=== PATIENT | male | born 1960 | race African-American/Black ===

== ENCOUNTER 2023-10-20 12:25 | Inpatient (IN) | payer MEDICARE, MEDICAID ==
[~2023-10-20] VITALS: Ht 170.2 cm; Wt 73.0 kg
[2023-10-20 13:47] LABS: Basophils # (auto) 0.1 10 ^3/uL (0-0.2); Eosinophils # (auto) 0.1 10 ^3/uL (0-0.8); Hemoglobin 11.8 g/dL (13.5-17.5); Lymphocytes # (auto) 0.2 10 ^3/uL (0.4-5.4); Mean Corpuscular Volume 102.1 fL (80.0-100.0); Monocytes # (auto) 0.3 10 ^3/uL (0-1.3); Nucleated Red Blood Cells % 0.2 %
[2023-10-20 13:50] LABS: Basophils % (auto) 1.2 % (0.0-2.0); Eosinophils % (auto) 1.3 % (0.0-7.0); Hematocrit 36.3 % (41.0-53.0); Lymphocytes % (auto) 2.2 % (10.0-50.0); Mean Corpuscular Hemoglobin 33.3 pg (28.0-32.0); Mean Corpuscular Hgb Conc. 32.7 g/dL (32.0-36.0); Monocytes % (auto) 3.3 % (0.0-12.0); Neutrophils # (auto) 7.9 10 ^3/uL (1.6-8.6); Red Blood Cells 3.55 10^6/uL (4.5-5.90); Red Cell Distribution Width 17.2 % (11.8-14.3); White Blood Cell 8.6 10^3/uL (4.4-10.8)
[2023-10-20 14:05] LABS: Alanine Aminotransferase 20 U/L (7-40); Alkaline Phosphatase 115 U/L (46-116)
[2023-10-20 14:06] LABS: Albumin 3.6 g/dL (3.2-4.8); Anion Gap 9 (5-15); Aspartate Aminotransferase 28 U/L (13-40); BUN/Creatinine Ratio 12.3 (10.0-20.0); Bilirubin, Total 1.2 mg/dL (0.2-1.0); Blood Urea Nitrogen 72 mg/dL (9-23); Carbon Dioxide 28 mmol/L (20-30); Chloride 101 mmol/L (98-107); Glucose 91 mg/dL (74-106); Lipase 41 U/L (12-53); Sodium 138 mmol/L (136-145); Total Protein 6.3 g/dL (5.7-8.2)
[2023-10-20] MEDS ORDERED: NITROGLYCERIN 0.4 MG SL TAB SL PRN (17:45)
[2023-10-20] MEDS ORDERED: ONDANSETRON HCL 4 MG/2 ML VIAL IV PRN (17:45)
[2023-10-20] MEDS ORDERED: DOCUSATE SOD 100 MG CAP PO PRN (17:45)
[2023-10-20] MEDS ORDERED: MORPHINE SULFATE INJ 2 MG/ml SYRG IV PRN (17:45)
[2023-10-20] MEDS ORDERED: LORA-1121 PO (18:52)
[2023-10-20] MEDS ORDERED: HYDR-4298 PO (18:52)
[2023-10-20] MEDS ORDERED: ISOS20TA5 PO (18:52)
[2023-10-20] MEDS ORDERED: LOSA-534 PO (18:52)
[2023-10-20] MEDS ORDERED: METO-289 PO (18:52)
[2023-10-20] MEDS ORDERED: TOPI25TA84 PO (18:52)
[2023-10-20] MEDS ORDERED: AMPICILLIN & SULBACTAM SODIUM 3 GM in SODIUM CHL 0.9% 100 ML IV SCH (19:15)
[2023-10-20] MEDS ORDERED: cefTRIAXone 1GM/50ML D5W 50 ML IV SCH (22:30)
[2023-10-21] VITALS (7 sets, daily range): BP systolic 117–161; BP diastolic 58–81; PULSE 65–91; RESP 16–19; TEMP 97.1–98.7; O2SAT 97–99
[2023-10-21] MEDS: metroNIDAZOLE 500MG/100ML 100 ML IV SCH (00:08)
[2023-10-21] MEDS: FUROSEMIDE 40 MG/4 ML VIAL IV ONE (00:10)
[2023-10-21] MEDS: hydrALAZINE HCL 25 MG TAB PO SCH (00:12)
[2023-10-21] MEDS: TOPIRAMATE 25 MG TAB PO SCH (00:12)
[2023-10-21] MEDS: ISOSORBIDE DINITRATE 10 MG TAB PO SCH (00:13)
[2023-10-21] MEDS: LOSARTAN POTASSIUM 50 MG TAB PO SCH (00:14)
[2023-10-21] MEDS: HEPARIN SODIUM (PORCINE) 5000 UNITS/ML 1ML VIAL SC SCH (00:16)
[2023-10-21] MEDS: cefTRIAXone 1GM/50ML D5W 50 ML IV SCH (00:45)
[2023-10-21] MEDS: FUROSEMIDE 20 MG/2 ML VIAL IV SCH (05:45)
[2023-10-21 06:50] LABS: Alanine Aminotransferase 17 U/L (7-40); Albumin 3.9 g/dL (3.2-4.8); Alkaline Phosphatase 122 U/L (46-116); Anion Gap 14 (5-15); Aspartate Aminotransferase 28 U/L (13-40); BUN/Creatinine Ratio 10.4 (10.0-20.0); Bilirubin, Total 1.6 mg/dL (0.2-1.0); Blood Urea Nitrogen 64 mg/dL (9-23); Calcium 9.4 mg/dL (8.5-10.1); Carbon Dioxide 25 mmol/L (20-30); Chloride 100 mmol/L (98-107); Glucose 80 mg/dL (74-106); Potassium 4.7 mmol/L (3.5-5.1); Sodium 139 mmol/L (136-145); Total Protein 6.9 g/dL (5.7-8.2)
[2023-10-21 06:53] LABS: INR 1.29 (0.9-1.15); Partial Thromboplastin Time 31.3 SEC (24.5-34.5); Prothrombin Time 13.3 sec (9.3-11.8)
[2023-10-21 07:01] LABS: Basophils # (auto) 0.1 10 ^3/uL (0-0.2); Basophils % (auto) 0.9 % (0.0-2.0); Eosinophils # (auto) 0.1 10 ^3/uL (0-0.8); Eosinophils % (auto) 0.6 % (0.0-7.0); Hematocrit 39.9 % (41.0-53.0); Lymphocytes # (auto) 0.2 10 ^3/uL (0.4-5.4); Lymphocytes % (auto) 2.7 % (10.0-50.0); Mean Corpuscular Hgb Conc. 32.6 g/dL (32.0-36.0); Mean Corpuscular Volume 101.3 fL (80.0-100.0); Monocytes # (auto) 0.3 10 ^3/uL (0-1.3); Monocytes % (auto) 3.6 % (0.0-12.0); Neutrophils # (auto) 8.1 10 ^3/uL (1.6-8.6); Neutrophils % (auto) 92.2 % (37.0-80.0); Nucleated Red Blood Cells % 0.1 %; Red Blood Cells 3.94 10^6/uL (4.5-5.90); White Blood Cell 8.8 10^3/uL (4.4-10.8)
[2023-10-21] MEDS ORDERED: BUME1TAB3 PO (07:34)
[2023-10-21 09:31] LABS: Triglycerides 72 mg/dL (< 150)
[2023-10-21 09:33] LABS: Cholesterol 90 mg/dL (< 200); HDL Cholesterol 31 mg/dL (40-59)
[2023-10-21 09:40] LABS: LDL Cholesterol 41 mg/dL (< 100)
[2023-10-21] MEDS ORDERED: BUMETANIDE 2.5mg/10ml (0.25 mg/ml) INJ IV ONE (10:00)
[2023-10-21] MEDS: METOPROLOL SUCCINATE XL 50 MG TAB PO SCH (10:05)
[2023-10-21] MEDS: PANTOPRAZOLE 40 MG/10 ML VIAL INJ IV SCH (10:05)
[2023-10-21] MEDS: LORazepam 0.5 MG TAB PO PRN (10:06)
[2023-10-21 11:54] LABS: Urine Bacteria None Seen /hpf (None Seen)
[2023-10-21 12:13] LABS: Urine Blood Negative /uL (Negative); Urine Clarity Clear (Clear); Urine Color Light-Yellow (Yellow); Urine Protein, UAD 2+ (Negative); Urine Urobilinogen Normal (Negative); Urine WBC 1 /hpf (0 - 3)
[2023-10-21 12:24] LABS: Amphetamine Screen, Urine Neg (NEGATIVE); Barbiturate Scree,Urine Neg (NEGATIVE); Benzodiazephine Screen, Urine Neg (NEGATIVE); Cocaine Screen, Urine Neg (NEGATIVE); Opiate Scree,Urine Neg (NEGATIVE); Phencyclidine Screen, Urine Neg (NEGATIVE)
[2023-10-21 12:25] LABS: Cannabinoid Screen, Urine Pos (NEGATIVE)
[2023-10-21] MEDS: GABAPENTIN 100 MG CAP PO SCH (13:30)
[2023-10-21 15:45] LABS: Free T3 1.89 pg/mL (2.3-4.2)
[2023-10-21 15:46] LABS: Free T4 (Free Thyroxine) 1.11 ng/dL (0.89-1.76)
[2023-10-21 15:52] LABS: Phosphorus 5.5 mg/dL (2.4-5.1)
[2023-10-21 16:04] LABS: Magnesium 2.3 mg/dL (1.6-2.6)
[2023-10-21] MEDS: BUMETANIDE 2.5mg/10ml (0.25 mg/ml) INJ IV SCH (17:05)
[2023-10-22] VITALS (8 sets, daily range): BP systolic 102–160; BP diastolic 55–81; PULSE 62–77; RESP 16–18; TEMP 97.6–98.1; O2SAT 95–100
[2023-10-22 08:35] LABS: Basophils # (auto) 0 10 ^3/uL (0-0.2); Basophils % (auto) 0.6 % (0.0-2.0); Eosinophils # (auto) 0.1 10 ^3/uL (0-0.8); Hematocrit 36.3 % (41.0-53.0); Hemoglobin 11.7 g/dL (13.5-17.5); Lymphocytes # (auto) 0.2 10 ^3/uL (0.4-5.4); Lymphocytes % (auto) 2.6 % (10.0-50.0); Mean Corpuscular Hemoglobin 32.6 pg (28.0-32.0); Mean Corpuscular Hgb Conc. 32.3 g/dL (32.0-36.0); Monocytes # (auto) 0.4 10 ^3/uL (0-1.3); Monocytes % (auto) 5.5 % (0.0-12.0); Neutrophils # (auto) 6.1 10 ^3/uL (1.6-8.6); Neutrophils % (auto) 90.3 % (37.0-80.0); Nucleated Red Blood Cells % 0.2 %; Red Blood Cells 3.59 10^6/uL (4.5-5.90); Red Cell Distribution Width 16.8 % (11.8-14.3); White Blood Cell 6.7 10^3/uL (4.4-10.8)
[2023-10-22 08:46] LABS: Alanine Aminotransferase 19 U/L (7-40); Albumin 3.3 g/dL (3.2-4.8); Alkaline Phosphatase 102 U/L (46-116); Anion Gap 13 (5-15); Aspartate Aminotransferase 24 U/L (13-40); BUN/Creatinine Ratio 10.8 (10.0-20.0); Blood Urea Nitrogen 70 mg/dL (9-23); Calcium 8.8 mg/dL (8.5-10.1); Carbon Dioxide 23 mmol/L (20-30); Chloride 105 mmol/L (98-107); Glucose 83 mg/dL (74-106); Phosphorus 6.1 mg/dL (2.4-5.1); Potassium 4.4 mmol/L (3.5-5.1); Sodium 141 mmol/L (136-145)
[2023-10-22 09:06] LABS: Magnesium 2.3 mg/dL (1.6-2.6)
[2023-10-22] MEDS: ASPirin 81 mg TAB PO SCH (11:44)
[2023-10-22] MEDS: CARVEDILOL 12.5 MG TAB PO SCH (11:45)
[2023-10-22 19:53] LABS: Body Fluid Polymorphonuclear 27 % (0-25); Body Fluid Red Blood Cells 9038 CUMM (0-2000); Body Fluid White Blood Cells 163 CUMM (0-200)
[2023-10-22] MEDS: ATORVASTATIN 20 MG TAB PO SCH (21:39)
[2023-10-22] MEDS ORDERED: HYDROcodone-ACET 5/325MG TAB PO PRN (22:15)
[2023-10-22] MEDS: HYDROcodone-ACET 5/325MG TAB PO PRN (22:37)
[2023-10-23] VITALS (8 sets, daily range): BP systolic 111–150; BP diastolic 62–77; PULSE 62–71; RESP 18–20; TEMP 97.3–98.1; O2SAT 95–98
[2023-10-23 06:40] LABS: Anion Gap 12 (5-15); Carbon Dioxide 24 mmol/L (20-30); Chloride 102 mmol/L (98-107); Potassium 4.4 mmol/L (3.5-5.1); Sodium 138 mmol/L (136-145)
[2023-10-23 06:42] LABS: Calcium 8.7 mg/dL (8.5-10.1)
[2023-10-23 06:46] LABS: BUN/Creatinine Ratio 8.6 (10.0-20.0); Glucose 101 mg/dL (74-106)
[2023-10-23 06:51] LABS: Basophils # (auto) 0.1 10 ^3/uL (0-0.2); Basophils % (auto) 1.1 % (0.0-2.0); Blood Urea Nitrogen 39 mg/dL (9-23); Eosinophils # (auto) 0.1 10 ^3/uL (0-0.8); Eosinophils % (auto) 1.4 % (0.0-7.0); Hematocrit 36.1 % (41.0-53.0); Hemoglobin 11.8 g/dL (13.5-17.5); Lymphocytes # (auto) 0.2 10 ^3/uL (0.4-5.4); Lymphocytes % (auto) 2.7 % (10.0-50.0); Mean Corpuscular Hemoglobin 32.9 pg (28.0-32.0); Mean Corpuscular Hgb Conc. 32.6 g/dL (32.0-36.0); Mean Corpuscular Volume 100.8 fL (80.0-100.0); Monocytes # (auto) 0.4 10 ^3/uL (0-1.3); Neutrophils # (auto) 5.2 10 ^3/uL (1.6-8.6); Neutrophils % (auto) 88.8 % (37.0-80.0); Nucleated Red Blood Cells % 0.1 %; Red Blood Cells 3.58 10^6/uL (4.5-5.90); Red Cell Distribution Width 16.2 % (11.8-14.3); White Blood Cell 5.9 10^3/uL (4.4-10.8)
[2023-10-23 08:50] LABS: Hepatitis B Surface Antibody Positive (Negative)
[2023-10-23 09:03] LABS: Hepatitis B Surface Antigen Negative (Negative)
[2023-10-23] MEDS: GABAPENTIN 100 MG CAP PO SCH ×2 (09:14→21:38)
[2023-10-23 13:06] LABS: Protein, Body Fluid 1.8 g/dL (.)
[2023-10-23] MEDS: ACETAMINOPHEN 325 MG TAB PO PRN (16:25)
[2023-10-23 16:29] LABS: Body Fluid pH 8
[2023-10-23 19:11] LABS: Body Fluid Polymorphonuclear 38 % (0-25); Body Fluid Red Blood Cells 5425 CUMM (0-2000); Body Fluid White Blood Cells 700 CUMM (0-200)
[2023-10-24] VITALS (8 sets, daily range): BP systolic 131–161; BP diastolic 63–76; PULSE 18–80; RESP 16–95; TEMP 97.7–98.2; O2SAT 94–98
[2023-10-24 06:04] LABS: Basophils # (auto) 0.1 10 ^3/uL (0-0.2); Basophils % (auto) 1.1 % (0.0-2.0); Eosinophils # (auto) 0.1 10 ^3/uL (0-0.8); Eosinophils % (auto) 1.5 % (0.0-7.0); Hematocrit 36.4 % (41.0-53.0); Lymphocytes # (auto) 0.2 10 ^3/uL (0.4-5.4); Lymphocytes % (auto) 4.2 % (10.0-50.0); Mean Corpuscular Hemoglobin 33.1 pg (28.0-32.0); Mean Corpuscular Hgb Conc. 33.1 g/dL (32.0-36.0); Mean Corpuscular Volume 100.1 fL (80.0-100.0); Monocytes # (auto) 0.4 10 ^3/uL (0-1.3); Neutrophils # (auto) 4.4 10 ^3/uL (1.6-8.6); Neutrophils % (auto) 85.2 % (37.0-80.0); Nucleated Red Blood Cells % 0.1 %; Red Blood Cells 3.64 10^6/uL (4.5-5.90); Red Cell Distribution Width 16.1 % (11.8-14.3); White Blood Cell 5.2 10^3/uL (4.4-10.8)
[2023-10-24 06:23] LABS: Alanine Aminotransferase 19 U/L (7-40); Albumin 3.3 g/dL (3.2-4.8); Alkaline Phosphatase 98 U/L (46-116); Anion Gap 9 (5-15); Aspartate Aminotransferase 26 U/L (13-40); BUN/Creatinine Ratio 9.7 (10.0-20.0); Bilirubin, Total 0.9 mg/dL (0.2-1.0); Calcium 8.7 mg/dL (8.7-10.4); Carbon Dioxide 26 mmol/L (20-30); Chloride 100 mmol/L (98-107); Glucose 86 mg/dL (74-106); Magnesium 1.9 mg/dL (1.6-2.6); Phosphorus 4.9 mg/dL (2.4-5.1); Potassium 4.6 mmol/L (3.5-5.1); Sodium 135 mmol/L (136-145); Total Protein 5.8 g/dL (5.7-8.2)
[2023-10-24 06:26] LABS: Blood Urea Nitrogen 52 mg/dL (9-23)
[2023-10-24 14:06] LABS: Protein, Body Fluid 1.8 g/dL (.)
[2023-10-25 01:00] VITALS: BP 134/64; PULSE 76; RESP 17; TEMP 97.7; O2SAT 97
[2023-10-25 05:00] VITALS: BP 148/69; PULSE 72; RESP 18; TEMP 97.8; O2SAT 96
[2023-10-25 07:03] LABS: Basophils # (auto) 0.1 10 ^3/uL (0-0.2); Basophils % (auto) 1.9 % (0.0-2.0); Eosinophils # (auto) 0.1 10 ^3/uL (0-0.8); Eosinophils % (auto) 1.3 % (0.0-7.0); Hematocrit 37.2 % (41.0-53.0); Hemoglobin 12.1 g/dL (13.5-17.5); Lymphocytes # (auto) 0.3 10 ^3/uL (0.4-5.4); Lymphocytes % (auto) 6.8 % (10.0-50.0); Mean Corpuscular Hemoglobin 32.6 pg (28.0-32.0); Mean Corpuscular Hgb Conc. 32.5 g/dL (32.0-36.0); Mean Corpuscular Volume 100.3 fL (80.0-100.0); Monocytes # (auto) 0.4 10 ^3/uL (0-1.3); Monocytes % (auto) 8.9 % (0.0-12.0); Neutrophils # (auto) 3.6 10 ^3/uL (1.6-8.6); Neutrophils % (auto) 81.1 % (37.0-80.0); Red Blood Cells 3.71 10^6/uL (4.5-5.90); Red Cell Distribution Width 16.2 % (11.8-14.3); White Blood Cell 4.4 10^3/uL (4.4-10.8)
[2023-10-25 07:31] LABS: Alanine Aminotransferase 32 U/L (7-40); Albumin 3.2 g/dL (3.2-4.8); Alkaline Phosphatase 110 U/L (46-116); Anion Gap 11 (5-15); Aspartate Aminotransferase 50 U/L (13-40); BUN/Creatinine Ratio 8.2 (10.0-20.0); Calcium 8.5 mg/dL (8.5-10.1); Carbon Dioxide 24 mmol/L (20-30); Chloride 101 mmol/L (98-107); Glucose 91 mg/dL (74-106); Potassium 4.5 mmol/L (3.5-5.1); Sodium 136 mmol/L (136-145)
[2023-10-25 07:32] LABS: Bilirubin, Total 0.9 mg/dL (0.2-1.0); Phosphorus 4.4 mg/dL (2.4-5.1); Total Protein 5.5 g/dL (5.7-8.2)
[2023-10-25 07:33] LABS: Blood Urea Nitrogen 34 mg/dL (9-23)
[2023-10-25 07:46] LABS: Magnesium 1.9 mg/dL (1.6-2.6)
[2023-10-25 08:00] VITALS: PULSE 87
[2023-10-25] MEDS ORDERED: LEVO500T91 PO (13:04)
[2023-10-25 15:20] VITALS: BP 124/67; PULSE 69; RESP 17; TEMP 98.3; O2SAT 97
[2023-10-26] MEDS ORDERED: levoFLOXacin 250 MG TAB PO SCH (10:00)
== END 2023-10-25 16:15 | disposition home or self-care (01) | DRG 291 ==
LOC: ER 12:25 → TELE 17:40 → TELE-WESTW 10-21 03:08
PROVIDERS: ADMIT Internal Medicine; ATTEND Internal Medicine
PROC: 0W993ZZ Drainage of Right Pleural Cavity, Percutaneous Approach (ICD-10-PCS; 2023-10-22)
PROC: 5A1D70Z Performance of Urinary Filtration, Intermittent, Less than 6 Hours Per Day (ICD-10-PCS; 2023-10-22)
PROC: 0W9B3ZZ Drainage of Left Pleural Cavity, Percutaneous Approach (ICD-10-PCS; principal; 2023-10-23)
PROC: 5A1D70Z Performance of Urinary Filtration, Intermittent, Less than 6 Hours Per Day (ICD-10-PCS; 2023-10-24)
DX: I13.2 Hypertensive heart and chronic kidney disease with heart failure and with stage 5 chronic kidney disease, or end stage renal disease (principal); I50.23 Acute on chronic systolic (congestive) heart failure; J96.00 Acute respiratory failure, unspecified whether with hypoxia or hypercapnia; N18.6 End stage renal disease; J91.8 Pleural effusion in other conditions classified elsewhere; B15.9 Hepatitis A without hepatic coma; I73.9 Peripheral vascular disease, unspecified; K21.9 Gastro-esophageal reflux disease without esophagitis; B19.20 Unspecified viral hepatitis C without hepatic coma; Z99.2 Dependence on renal dialysis; Z95.0 Presence of cardiac pacemaker; Z88.1 Allergy status to other antibiotic agents; Z88.8 Allergy status to other drugs, medicaments and biological substances
CPT/HCPCS: 32555; 36415; 71045; 76604; 76942; 78582; 80048; 80053; 80061; 80307; 81001; 82306; 82607; 83036; 83605; 83615; 83690; 83735; 83880; 83986; 84100; 84439; 84443; 84481; 84484; 84550; 85025; 85610; 85730; 86706; 87070; 87081; 87205; 87340; 89051; 90935; 93005; 93306; 93886; 93925; 93970; 97110; 97116; 97163; 97530; C9113; G0378; J3490